=== PATIENT | female | born 1965 | race Caucasian/White ===

== ENCOUNTER → 2020-03-16 15:12 | Outpatient (CLI) | payer OTHER ==
[2010-12-11 08:04] VITALS: BMI 30.1
== END | disposition home or self-care (01) ==
LOC: D.CT 15:12
PROVIDERS: ATTEND Clinical Nurse Specialist Family Health
DX: M54.16 Radiculopathy, lumbar region (principal)

== ENCOUNTER 2021-04-02 14:35 | Inpatient (IN) | payer BC ==
[~2021-04-02] VITALS: Ht 165.1 cm; Wt 74.5 kg
--- NOTE | ~2021-04-02 | OP ---
PATIENT NAME: MAI AUSTIN MEDICAL RECORD: [id number] :63 LOCATION:D.M2 D.2109 ADMISSION DATE:04/05/21 SURGEON: TAY TONG MD DATE OF OPERATION: 04/07/2021 PREOPERATIVE DIAGNOSIS: Severe degenerative disc disease L5-S1 with segmental instability. POSTOPERATIVE DIAGNOSIS: Severe degenerative disc disease S1 with segmental instability. PROCEDURE: Anterior lumbar interbody fusion at L5-S1 with PEEK interbody cage and anterior plates. SURGEON: Tay tong MD DESCRIPTION OF TECHNIQUE: After induction of general endotracheal anesthesia, Dr. Gamboa obtained an approach to the anterior spine at L5-S1. I entered the operating field and confirmed the L5-S1 interspace with a fluoroscopic x-ray and a spinal needle. The annulus was then incised and the disc material was removed with pituitary rongeurs and curettes. Following this, several trials were used to determine an appropriate size of interbody cage. This cage was placed in the disc space after filling it with bone stem cells. Next, good position of hardware was confirmed with fluoroscopic x-ray. Anterior lumbar plates were placed under fluoroscopic control. Following this, good position of hardware was confirmed. The surgery was then turned back over to Dr. Gamboa. All counts were reported as correct. Estimated blood loss was 100 cc. TRANSINT:[id number] Voice Confirmation ID: [id number] DOCUMENT ID: [id number] TAY TONG MD CC: [id number] DICTATION DATE: 04/08/21 0943 PEST CONTROL SERVICE SALES AGENT: 04/08/21 0959 DIS IN 04/07/21 [address] [place] [address]
[2021-04-02] MEDS ORDERED: HYDROCODON-ACE1 EA10 PO (15:26)
[2021-04-02] MEDS ORDERED: LISINOPRIL10 MG PO (15:27)
[2021-04-02] MEDS ORDERED: CYCLOBENZAPRINE10 MG PO (15:27)
[2021-04-02] MEDS ORDERED: TRAZODONE HCL150 MG PO (15:27)
[2021-04-02] MEDS ORDERED: XANAX0.5 MG PO (15:27)
[2021-04-02] MEDS ORDERED: NEURONTIN 300300 MG PO (15:28)
[2021-04-02] MEDS ORDERED: BUPROPION HCL150 M1 PO (15:28)
[2021-04-02] MEDS ORDERED: LEXAPRO20 MG PO (15:28)
[2021-04-02] MEDS ORDERED: VITAMIN B-12500 MCG PO (15:29)
[2021-04-02] MEDS ORDERED: PROBIOTIC1 EAC1 PO (15:29)
[2021-04-02] MEDS ORDERED: VITAMIN D325 MC1 PO (15:29)
[2021-04-02] MEDS ORDERED: COLLAGEN C PO (15:30)
[2021-04-02 16:42] LABS: BASOPHILS 0.7 % (0-2); EOSINOPHILS 1.4 % (0-7); HEMATOCRIT 40.7 % (36.0-48.0); HEMOGLOBIN 13.8 g/dL (12-16); LYMPHOCYTES 38.3 % (15-50); MCHC 33.9 g/dL (31.0-37.0); MCV 85.5 fL (80.0-100.0); MEAN PLATELET VOLUME 6.4 fL (7.4-10.4); MONOCYTES 10.3 % (2-11); NEUTROPHILS 49.3 % (40-80); PLATELET COUNT 267 10x3/uL (130-400); RBC 4.76 10x6/uL (4.00-5.40); RDW 13.4 % (11.5-14.5); WBC 6.3 10x3/uL (4.8-10.8)
[2021-04-02 16:47] LABS: CALC OSMOLALITY 280 mosm/kg (275-300); CALCIUM 9.4 mg/dL (8.5-10.1); CARBON DIOXIDE 28.2 mmol/L (21.0-32.0); CHLORIDE - SERUM 106 mmol/L (98-107); CREATININE - SERUM 0.7 mg/dL (0.6-1.3); GLUCOSE 88 mg/dL (74-106); SODIUM 141 mmol/L (136-145); UREA NITROGEN 15 mg/dL (7-18); eGFR NON AFRICAN AMERICAN > 90 mL/min (90-120)
[2021-04-05 06:53] VITALS: BP 147/70; BMI 27.5
--- NOTE | 2021-04-05 16:22 | NUR ---
JULIET BIOMET PRIMAGEN ALLOGRAFT ID- [id number] EXP 01/26/2025 LOT [id number]
--- NOTE | 2021-04-05 18:13 | NUR ---
ARMS PADDED AND TAPED OVER HEAD
[2021-04-05 20:12] VITALS: BP 135/62
[2021-04-05 21:12] VITALS: BP 142/73
--- NOTE | 2021-04-05 21:45 | NUR ---
RECEIVED PT FROM PACU VIA BED. PT A&O X4 AND ABLE TO ANSWER QUESTIONS. PIV TO LEFT FOREARM, PATENT AND INFUSING, NO REDNESS OR SWELLING. NASCIMENTO IN PLACE, DRAINING TO GRAVITY, STATLOCK IN PLACE, CLEAR YELLOW URINE OUTPUT. INCISION TO LOWER MID ABD, HEALING WELL. EDUCATED PT ON CL AND NEEDS, VERBALIZED UNDERSTANDING. BED LOW, CL IN REACH.
[2021-04-05 21:50] VITALS: BP 147/70; Ht 165.1 cm; Wt 74.5 kg
[2021-04-05 22:12] VITALS: BP 137/69
[2021-04-06 00:14] VITALS: BP 135/76
[2021-04-06 06:05] VITALS: BP 111/52
[2021-04-06 08:00] VITALS: BP 118/62
[2021-04-06 12:00] VITALS: BP 105/56
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
--- NOTE | 2021-04-06 14:08 | NUR ---
CALLED DR. TONG AND ASKED HIM IF PT'S HOME MEDICATIONS CAN BE RESTARTED. HE STATES THAT ALL MEDICATIONS CAN BE STARTED. ALSO VERIFIED THAT IF PT NEEDED TO HAVE A MESH WORKER PUMP. DR. TONG STATED THAT MORPHINE AND NORCO WAS JUST FINE.
--- NOTE | 2021-04-06 14:20 | NUR ---
PT C/O BACK HURTING FROM SITTING UP TO CHAIR, EXPLAINED TO PT THE IMPORTANCE OF SITTING UP TO CHAIR, SO SHE DOES NOT DEVELOP PNEUMONIA. PT STILL WANTING TO GO BACK TO BED. HELPED PT TO BED, ALL NEEDS MET, CALL LIGHT IN REACH.
[2021-04-06 16:00] VITALS: BP 129/68
--- NOTE | 2021-04-06 16:51 | NUR ---
HELPED PT TO BATHROOM AND SHRIMP PEELING MACHINE TENDER HELPED PT BACK TO BED. ALL NEDDS MET.
--- NOTE | 2021-04-06 17:05 | NUR ---
NORCO GIVEN FOR PAIN LEVEL OF 9/10. PT UP TO SIDE OF BED, FIXING TO EAT FULL LIQUID DIET. ALL NEEDS MET, CALL LIGHT IN REACH.
--- NOTE | 2021-04-06 19:55 | NUR ---
RECEIVED REPORT, WILL ASSUME CARE OF PT, ASSIST PT TO RESTROOM, BATHROOM LIGHT IN REACH, DENIES ANY OTHER NEEDS AT THIS TIME, WILL CONTINUE PLAN OF CARE
[2021-04-06 20:41] VITALS: BP 124/58
[2021-04-07 01:58] VITALS: BP 94/47
[2021-04-07 06:10] VITALS: BP 105/54
--- NOTE | 2021-04-07 07:00 | NUR ---
RECEIVED REPORT. ASSUMED CARE OF PATIENT. CALL LIGHT WITHIN REACH. EYES CLOSED, EASILY AROUSED. WHITE BOARD UPDATED, BEDSIDE SHIFT REPORT COMPLETE. NO DISTRESS. AWAITING DOPPLER TO LOWER EXTREMITIES.
[2021-04-07 07:45] VITALS: BP 110/53
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
--- NOTE | 2021-04-07 10:41 | NUR ---
20 GAUGE IV REMOVED FROM LEFT FOREARM, CATHETER TIP INTACT. NO BLEEDING FROM SITE. 2X2 GAUZE APPLIED AND SECURED WITH BANDAID. PATIENT THANKED THIS HEAD OF ADVERTISING FOR ALL CARES RENDERED. AWAITING DISCHARGE PAPERS NOW. PATIENT BEING DISCHARGED TO HOME PER .
[2021-04-07] MEDS ORDERED: COLACE100 MG PO (10:42)
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
--- NOTE | 2021-04-07 11:05 | NUR ---
PATIENT LEFT UNIT VIA WHEELCHAIR WITH ALL PERSONAL BELONGINGS INCLUDING SUNGLASSES, CELLPHONE, SETTER MOLDING AND COREMAKING MACHINES, AND HARD SCRIPT FOR [place]. PATIENT LEFT UNIT IN NO ACUTE DISTRESS. PATIENT AGAIN THANKED THIS CANCELING MACHINE OPERATOR FOR CARES RENDERED TODAY. PATIENT DISCHARGED TO HOME IN STABLE CONDITION.
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
== END 2021-04-07 11:15 | disposition home or self-care (01) | DRG 460 ==
LOC: D.M2 04-05 06:17 → D.SDCHOLD 04-05 06:17 → D.M2 04-05 19:00
PROVIDERS: Anesthesiology; ADMIT Neurological Surgery; ATTEND Neurological Surgery
PROC: 0SG30A0 Fusion of Lumbosacral Joint with Interbody Fusion Device, Anterior Approach, Anterior Column, Open Approach (ICD-10-PCS; principal; 2021-04-07)
DX: M51.37 Other intervertebral disc degeneration, lumbosacral region (principal); F41.9 Anxiety disorder, unspecified; I10 Essential (primary) hypertension; F32.9 Major depressive disorder, single episode, unspecified